=== PATIENT | male | born 1975 | race Caucasian/White ===

== ENCOUNTER 2023-09-27 06:29 | Emergency (ER) | payer MEDICAID ==
[~2023-09-27] VITALS: Ht 170.2 cm; Wt 122.0 kg
[2023-09-27 06:34] VITALS: O2SAT 99
[2023-09-27] MEDS ORDERED: OXYCODONE HCL/ACETAMINOPHEN 5/325MG TABLET PO ONE (06:45)
[2023-09-27] MEDS ORDERED: IBUP-2028 PO (07:43)
[2023-09-27 08:13] VITALS: BP 160/72; PULSE 85; RESP 17; TEMP 98.2
== END 2023-09-27 08:27 | disposition home or self-care (01) ==
LOC: ER 06:29
DX: S82.452A Displaced comminuted fracture of shaft of left fibula, initial encounter for closed fracture (principal); S82.52XA Displaced fracture of medial malleolus of left tibia, initial encounter for closed fracture; W18.30XA Fall on same level, unspecified, initial encounter; Y93.89 Activity, other specified; Y92.89 Other specified places as the place of occurrence of the external cause; Y99.8 Other external cause status
CPT/HCPCS: 73590; 73600; 29505; 99284; Z7610